=== PATIENT | male | born 1965 | race Asian ===

== ENCOUNTER → 2017-09-30 | Outpatient (CLI) | payer OTHER | LOC: M.RAD 16:42 | DX: M47.897 Other spondylosis, lumbosacral region (principal) ==

== ENCOUNTER → 2019-03-05 | Outpatient (CLI) | payer OTHER | LOC: M.MRI 15:56 | DX: M47.816 Spondylosis without myelopathy or radiculopathy, lumbar region (principal); M43.17 Spondylolisthesis, lumbosacral region; M51.26 Other intervertebral disc displacement, lumbar region; M12.88 Other specific arthropathies, not elsewhere classified, other specified site; M48.062 Spinal stenosis, lumbar region with neurogenic claudication ==